=== PATIENT | female | born 1990 | race Two or more races ===

== ENCOUNTER 2021-02-19 03:55 | Emergency (ER) | payer OTHER ==
[~2021-02-19] VITALS: Ht 165.1 cm; Wt 77.1 kg
[2021-02-19 07:59] VITALS: BP 111/74
== END 2021-02-19 08:05 | disposition home or self-care (01) ==
LOC: ER 04:00
DX: S01.312A Laceration without foreign body of left ear, initial encounter (principal); X58.XXXA Exposure to other specified factors, initial encounter; Y93.89 Activity, other specified; Y92.89 Other specified places as the place of occurrence of the external cause; Y99.8 Other external cause status
CPT/HCPCS: 12011